=== PATIENT | female | born 1995 | race Caucasian/White ===

== ENCOUNTER → 2020-12-03 11:30 | Outpatient (CLI) | payer OTHER, SELFPAY ==
--- NOTE | ~2020-12-03 | XR_ITS ---
XR cervical spine 4-5V INDICATION: Cervicalgia TECHNIQUE: 3 views of the cervical spine. FINDINGS: No prior studies for comparison. The cervical spine is visualized to the cervicothoracic junction. There is no prevertebral soft tiss ue swelling, listhesis, or loss of vertebral body height. Intervertebral disc spaces are normal. Th e osseous central canal is patent. No displaced cervical spine fractures are identified. IMPRESSION: 1. No acute osseous abnormality of the cervical spine. Reviewed, dictated and finalized at location B.
== END ==
PROVIDERS: Visit Provider Physician Assistant
DX: M54.2 Cervicalgia (principal)
CPT/HCPCS: 72050

== ENCOUNTER 2021-06-27 14:49 | Emergency (ER) | payer OTHER, SELFPAY ==
[2021-06-27 14:57] VITALS: BP 128/69; PULSE 92; RESP 20; TEMP 37.4; O2SAT 100
--- NOTE | 2021-06-27 15:39 | ED.EAR ---
HPI - Ear Problem General Chief complaint: Ear Stated complaint: Ear Pain Time Seen by Provider: 06/27/21 15:29 Source: patient and RN notes reviewed Mode of arrival: ambulatory Limitations: no limitations History of Present Illness HPI Narrative: 25-year-old female presents concern for bilateral ear pain and fullness, worse on the right. Reports pain started approximately 6 days ago and has progressed on the right ear. She denies nasal drainage, sinus congestion, headache, sore throat, fever, body aches, chills, sweats, cough. Denies drainage from the ear. MD Complaint: ear pain Related Data Home Medications Medication Instructions Recorded Confirmed norgestimate 0.25 mg-ethinyl 1 tablet PO DAILY 05/10/19 06/27/21 estradiol 35 mcg tablet Allergies Allergy/AdvReac Type Severity Reaction Status Date / Time No Known Allergies Allergy Verified 06/27/21 15:06 Review of Systems Review of Systems: CONSTITUTIONAL: Denies malaise, chills, sweats, or fever. EYES: Denies visual changes, redness, or discharge. ENT: Denies rhinorrhea, congestion, sinus pain, and sore throat. Reports bilateral ear pain and fullness, worse on the right CARDIOVASCULAR: Denies chest pain, palpitations, or edema. RESPIRATORY: Denies cough. Denies dyspnea. GASTROINTESTINAL: Denies abdominal pain, nausea, vomiting, diarrhea SKIN: Denies rash or itching. MUSCULOSKELETAL: Denies myalgia. NEUROLOGIC: Denies headache. All systems reviewed & are unremarkable except as noted in HPI and below PMFSH Past Medical History Medical History Fatigue Loss of hair Surgical History Surgical History History of removal of cyst History of tonsillectomy [place] teeth removed Family History Family History Grandparent Diabetes mellitus Cerebrovascular accident Family history of pancreatic cancer Social History Social History Smoking status: Never smoker Second hand tobacco smoke exposure: No Alcohol intake: current Drinks per week: 3 Substance use: never Substance use type: does not use Gender identity (if verbalized by the patient): Female Sexual Orientation (if Verbalized by the Patient): Straight or Heterosexual Comments At time of signature, agree with nursing past medical, surgical, social and family history. There is no relevant family history pertinent to the presenting complaint Exam Narrative: GENERAL: Well-appearing, well-nourished, and in no acute distress. HEAD: Normocephalic EYES: PERRLA, conjunctivae clear ENT: Nares clear, turbinates edematous, clear discharge. Mucous membranes moist. TM pearly wray with dull light reflex bilaterally; no tragal tenderness. Oropharynx not erythematous without lesions. Tonsils not enlarged and without exudate, no drooling, no hoarseness, no trismus, uvula midline. NECK: Supple. No lymphadenopathy CHEST: Clear to auscultation, breath sounds equal. No wheezing, rhonchi, rales, or stridor. No respiratory distress, speaks in full sentences. HEART: Regular rate and rhythm. No murmur heard. SKIN: Warm, dry, no rash. NEURO: Alert and oriented x3. PSYCH: Normal mood and affect Course Course Emergency Course: Patient is aware of diagnosis, understands and agrees to treatment plan. Anticipatory guidance given. Patient agrees to follow-up as directed and is aware of reasons to seek care at the emergency department. Portions of this record may have been created with voice recognition software Vital Signs Vital signs: Vital Signs Temperature 99.4 F 06/27/21 14:57 Pulse Rate 92 06/27/21 14:57 Respiratory Rate 20 06/27/21 14:57 Blood Pressure 128/69 06/27/21 14:57 Pulse Oximetry 100 06/27/21 14:57 Temperature 99.4 F 06/27/21 14:57 Pulse Rat
== END 2021-06-27 15:46 | disposition home or self-care (01) ==
PROVIDERS: Emergency Provider Nurse Practitioner; PCP Family Medicine
DX: H69.83 Other specified disorders of Eustachian tube, bilateral (principal)
CPT/HCPCS: 99213; G0463

== ENCOUNTER 2023-03-29 10:53 | Emergency (ER) | payer OTHER, SELFPAY ==
[2023-03-29 11:02] VITALS: BP 116/74; PULSE 83; RESP 20; TEMP 36.8; O2SAT 100
--- NOTE | 2023-03-29 11:12 | ED.URI ---
HPI - URI/Sore Throat General Chief Complaint: Upper Respiratory Infection Stated Complaint: sore throat History of Present Illness HPI Narrative: Patient presents with sore throat. No fever no trouble swallowing no drooling. Patient also reports an occasional cough but no other symptoms voiced. Related Data Home Medications Medication Instructions Recorded Confirmed norgestimate 0.25 mg-ethinyl 1 tablet PO DAILY 05/10/19 03/29/23 estradiol 35 mcg tablet (Estarylla) Allergies Allergy/AdvReac Type Severity Reaction Status Date / Time No Known Allergies Allergy Verified 03/29/23 11:11 Review of Systems Review of Systems: CONSTITUTIONAL: Denies chills, or sweats. Reports fever and generalized body aches EYES: Denies visual changes, redness, or discharge. ENT: Denies otalgia. Reports nasal congestion runny nose and sore throat CARDIOVASCULAR: Denies chest pain, palpitations, or edema. RESPIRATORY: Denies dyspnea. Reports occasional cough GASTROINTESTINAL: Denies abdominal pain, nausea, vomiting, or diarrhea. GENITOURINARY: Denies dysuria or hematuria. SKIN: Denies rash or itching. MUSCULOSKELETAL: Denies back pain, joint pain, or myalgia. Reports generalized body aches NEUROLOGIC: Denies headache, numbness, or weakness. PSYCHIATRIC: Denies anxiety or depression. [facility] Past Medical History Medical History Fatigue Loss of hair Surgical History Surgical History History of removal of cyst History of tonsillectomy [place] teeth removed Family History Family History Grandparent Diabetes mellitus Cerebrovascular accident Family history of pancreatic cancer Grandparent Thyroid cancer Other H/O parathyroidectomy Social History Social History Smoking status: Never smoker Second hand tobacco smoke exposure: No Alcohol intake: current Drinks per week: 3 Substance use: never Substance use type: does not use Lack of Transportation: No Lack of Food: Never True Current Housing: I Have Housing Concerned About Future Housing: No Difficulty Paying Gas/Electric Bills: No Difficulty Paying for Meds: No Currently Unemployed: No Education: Bachelor's Degree Difficulty w/ Childcare or Family Care: No Living arrangements: with family Occupation/Education: student Gender identity (if verbalized by the patient): Female Sexual Orientation (if Verbalized by the Patient): Straight or Heterosexual Comments At time of signature, agree with nursing past medical, surgical, social and family history. There is no relevant family history pertinent to the presenting complaint Exam Narrative: The patient is a well-developed, well-nourished in no acute distress. SKIN: Skin is warm and dry without erythema, swelling or exudate. There is good turgor. No tenting. HEAD: Atraumatic. Normocephalic. No temporal or scalp tenderness. EYES: Moist and bright. Sclera and conjunctivae normal. No discharge. PERRLA. Extraocular motions intact. Gross visual acuity intact. EARS: Pinna is normal shape and contour. Clear external auditory canals. TM pearly aparicio with good cone of light, no erythema or suppuration. Bilateral cerumen noted no gross hearing deficit. NOSE: pink, moist mucosa with good air movement. Clear rhinorrhea without nasal flaring. Septum midline. Mouth: moist mucous membranes. THROAT; mild erythema noted to posterior oropharynx with moderate postnasal drainage. Without exudate or ulceration.. Uvula midline. Normal movement of soft palate. NECK: Supple and nontender with full range of motion without discomfort. No meningeal signs. LUNGS: Equal and bilateral breath sounds without wheezes, rales or rhonchi. CHEST: The chest wall is without retractions or use of
== END 2023-03-29 11:23 | disposition home or self-care (01) ==
PROVIDERS: Emergency Provider Nurse Practitioner Family; PCP Family Medicine
DX: J02.9 Acute pharyngitis, unspecified (principal)
CPT/HCPCS: 87081; 87880; 99213; G0463

== ENCOUNTER 2023-04-05 09:46 | Emergency (ER) | payer OTHER, SELFPAY ==
[2023-04-05 10:04] VITALS: BP 125/86; PULSE 94; RESP 16; TEMP 37.2; O2SAT 100
--- NOTE | 2023-04-05 10:27 | ED.URI ---
HPI - URI/Sore Throat General Chief Complaint: Upper Respiratory Infection Stated Complaint: Sore Throat/Ear Problem Time Seen by Provider: 04/05/23 10:22 Source: patient, RN notes reviewed and old records reviewed Mode of arrival: ambulatory Limitations: no limitations History of Present Illness HPI Narrative: 27 year old female who presents to [facility] care with complaints of sore throat sinus drainage and dry cough for one week duration and received Steroid from previous visit which she completed. Patient reports that symptoms are better but now bilateral ear pain with tenderness in her neck below her ears. Patient has been taking Tylenol, Sudafed and some Delsym cough medication for her symptoms. MD elicited complaint: cough, sore throat and other (ear pain) Onset (ago): week(s) (1) Pain scale (0-10): 4 Treatments prior to arrival: acetaminophen and other (Delsym, Sudafed) Related Data Home Medications Medication Instructions Recorded Confirmed norgestimate 0.25 mg-ethinyl 1 tablet PO DAILY 05/10/19 04/05/23 estradiol 35 mcg tablet (Estarylla) Allergies Allergy/AdvReac Type Severity Reaction Status Date / Time No Known Allergies Allergy Verified 04/05/23 10:03 Review of Systems Review of Systems: CONSTITUTIONAL: Denies malaise, chills, sweats, or fever. EYES: Denies visual changes, redness, or discharge. ENT: Reports rhinorrhea, congestion, sinus pain, bilateral otalgia and some scratchy throat. CARDIOVASCULAR: Denies chest pain, palpitations, or edema. RESPIRATORY: Reports cough.? Denies dyspnea. GASTROINTESTINAL: Denies abdominal pain, nausea, vomiting, diarrhea SKIN: Denies rash or itching. MUSCULOSKELETAL: Denies myalgia. NEUROLOGIC: Denies headache. All systems reviewed & are unremarkable except as noted in HPI and below PMFSH Past Medical History Medical History Fatigue Loss of hair Surgical History Surgical History History of removal of cyst History of tonsillectomy [place] teeth removed Family History Family History Grandparent Diabetes mellitus Cerebrovascular accident Family history of pancreatic cancer Grandparent Thyroid cancer Other H/O parathyroidectomy Social History Social History Smoking status: Never smoker Second hand tobacco smoke exposure: No Alcohol intake: current Drinks per week: 3 Substance use: never Substance use type: does not use Lack of Transportation: No Lack of Food: Never True Current Housing: I Have Housing Concerned About Future Housing: No Difficulty Paying Gas/Electric Bills: No Difficulty Paying for Meds: No Currently Unemployed: No Education: Bachelor's Degree Difficulty w/ Childcare or Family Care: No Living arrangements: with family Occupation/Education: student Gender identity (if verbalized by the patient): Female Sexual Orientation (if Verbalized by the Patient): Straight or Heterosexual Comments At time of signature, agree with nursing past medical, surgical, social and family history. There is no relevant family history pertinent to the presenting complaint Exam Narrative: GENERAL: Well-appearing, well-nourished, and in no acute distress. HEAD: Normocephalic EYES: PERRLA, conjunctivae clear ENT: Nares clear, turbinates edematous and erythematous, clear discharge. Mucous membranes moist.Right TM red, Left TM pearly wray with dull light reflex bilaterally; no tragal tenderness. Oropharynx erythematous without lesions. Tonsils not present and throat without exudate, no drooling, no hoarseness, no trismus, uvula midline.post nasal drainage NECK: Supple. No lymphadenopathy CHEST: Clear to auscultation, breath sounds equal. No wheezing, rhonchi, rales, or stri
== END 2023-04-05 10:33 | disposition home or self-care (01) ==
PROVIDERS: Emergency Provider Registered Nurse; PCP Family Medicine
DX: H65.01 Acute serous otitis media, right ear (principal)
CPT/HCPCS: 99213; G0463

== ENCOUNTER 2023-12-21 11:33 | Emergency (ER) | payer OTHER, SELFPAY ==
[2023-12-21 11:40] VITALS: BP 133/76; PULSE 85; RESP 14; TEMP 37.1; O2SAT 99
--- NOTE | 2023-12-21 12:15 | ED.HEATRA ---
HPI - Head Injury General Chief complaint: Head Injury Stated complaint: 2 x 4 fell on head/headaches Time Seen by Provider: 12/21/23 12:00 Source: patient Mode of arrival: ambulatory Limitations: no limitations History of Present Illness HPI Narrative: 28 year old female who presents to [facility] care with complaints of being hit on the right parietal area of her head 5 days ago when a 2X4 fell 3 feet off of her deck. Patient reports that she initially had some nausea but that resolved. Patient reports that she did not have loss of consciousness or have any vomiting.She reports initial goose egg almost gone no break in skin noted. Patient reports that she continues to have some headache that are in the right side of her head and radiates to back of her head. Patient reports that she has been taking Tylenol and Ibuprofen for her headache with last dose taken at 3 pm yesterday. Patient reports no dizziness denies any nausea or any photophobia. Patient works at a [employer] in [place] and her DON wanted her to be seen. MD Complaint: head injury Onset (ago): day(s) (5) Mechanism of Injury: other (2X4 fell 3 feet off deck hit her in head) Place: home Loss of Consciousness: no Location of injury: parietal (right) Severity scale (1-10): 6 Quality: other (throbbing) Associated symptoms: other (headache) Related Data Home Medications Medication Instructions Recorded Confirmed norgestimate 0.25 mg-ethinyl 1 tablet PO DAILY 05/10/19 12/21/23 estradiol 35 mcg tablet (Estarylla) Allergies Allergy/AdvReac Type Severity Reaction Status Date / Time No Known Allergies Allergy Verified 12/21/23 11:56 Review of Systems Review of Systems: CONSTITUTIONAL: Denies fever, chills, or sweats. EYES: Denies visual changes, redness, or discharge. ENT: Denies rhinorrhea, congestion, sore throat, or otalgia. CARDIOVASCULAR: Denies chest pain, palpitations, or edema. RESPIRATORY: Denies cough or dyspnea. GASTROINTESTINAL: Denies abdominal pain, nausea, vomiting, or diarrhea. GENITOURINARY: Denies dysuria or hematuria. SKIN: Denies rash or itching. MUSCULOSKELETAL: Denies back pain, joint pain, or myalgia. NEUROLOGIC: reports headache, denies any numbness, or weakness. PSYCHIATRIC: Denies anxiety or depression. All systems reviewed & are unremarkable except as noted in HPI and below PMFSH Past Medical History Medical History Fatigue Loss of hair Surgical History Surgical History History of removal of cyst History of tonsillectomy [place] teeth removed Family History Family History Grandparent Diabetes mellitus Cerebrovascular accident Family history of pancreatic cancer Grandparent Thyroid cancer Other H/O parathyroidectomy Social History Social History Smoking status: Never smoker Second hand tobacco smoke exposure: No Alcohol intake: current Drinks per week: 3 Substance use: never Substance use type: does not use Lack of Transportation: No Lack of Food: Never True Current Housing: I Have Housing Concerned About Future Housing: No Difficulty Paying Gas/Electric Bills: No Difficulty Paying for Meds: No Currently Unemployed: No Education: Bachelor's Degree Difficulty w/ Childcare or Family Care: No Living arrangements: with family Occupation/Education: student Gender identity (if verbalized by the patient): Female Sexual Orientation (if Verbalized by the Patient): Straight or Heterosexual Comments At time of signature, agree with nursing past medical, surgical, social and family history. There is no relevant family history pertinent to the presenting complaint Exam Narrative: GENERAL: Well-appearing, well-nourished, and in no acute distress. HEAD: Normoc
== END 2023-12-21 12:40 | disposition home or self-care (01) ==
PROVIDERS: Emergency Provider Registered Nurse; PCP Family Medicine
DX: R51.9 Headache, unspecified (principal); F07.81 Postconcussional syndrome
CPT/HCPCS: 99211; G0463

== ENCOUNTER 2024-09-15 12:06 | Emergency (ER) | payer OTHER, SELFPAY ==
[2024-09-15 12:10] VITALS: BP 126/77; PULSE 85; RESP 16; TEMP 36.8; O2SAT 99
[2024-09-15 12:28] LABS: EDSTREPNEGPOS1 Negative (Negative)
--- NOTE | 2024-09-15 12:35 | ED.URI ---
HPI - URI/Sore Throat General Chief Complaint: Upper Respiratory Infection Stated Complaint: Sore Throat Time Seen by Provider: 09/15/24 12:35 Source: patient Mode of arrival: ambulatory Limitations: no limitations History of Present Illness HPI Narrative: 28-year-old female presents with complaint of sore throat since yesterday morning. Woke up congested with postnasal drainage today. Started Zyrtec. Afebrile. No cough. No fatigue, body aches or chills. Afebrile. All systems reviewed and negative except as noted above. Related Data Home Medications ?Medication ?Instructions ?Recorded ?Confirmed ?Last Taken ?Type No Home Medications 08/15/24 08/15/24 Unknown History Allergies Allergy/AdvReac Type Severity Reaction Status Date / Time No Known Allergies Allergy Verified 08/15/24 13:38 Review of Systems Review of Systems: CONSTITUTIONAL: Denies fever, chills, or sweats. EYES: Denies visual changes, redness, or discharge. ENT: Reports rhinorrhea, congestion, sore throat. Denies otalgia. CARDIOVASCULAR: Denies chest pain, palpitations, or edema. RESPIRATORY: Denies cough or dyspnea. GASTROINTESTINAL: Denies abdominal pain, nausea, vomiting, or diarrhea. GENITOURINARY: Denies dysuria or hematuria. SKIN: Denies rash or itching. MUSCULOSKELETAL: Denies back pain, joint pain, or myalgia. NEUROLOGIC: Denies headache, numbness, or weakness. PSYCHIATRIC: Denies anxiety or depression. All other systems reviewed are negative, except as documented in HPI. [facility] Past Medical History Medical History Loss of hair Fatigue Surgical History Surgical History History of removal of cyst [place] teeth removed History of tonsillectomy Family History Family History Grandparent Diabetes mellitus Cerebrovascular accident Family history of pancreatic cancer Grandparent Thyroid cancer Other H/O parathyroidectomy Social History Social History Smoking status: Never smoker Second hand tobacco smoke exposure: No Alcohol intake: current Drinks per week: 3 Substance use: never Substance use type: does not use Lack of Transportation: No Lack of Food: Never True Current Housing: I Have Housing Concerned About Future Housing: No Difficulty Paying Gas/Electric Bills: No Difficulty Paying for Meds: No Currently Unemployed: No Education: Bachelor's Degree Difficulty w/ Childcare or Family Care: No Living arrangements: with family Occupation/Education: student Gender identity (if verbalized by the patient): Female Sexual Orientation (if Verbalized by the Patient): Straight or Heterosexual Comments At time of signature, agree with nursing past medical, surgical, social and family history. There is no relevant family history pertinent to the presenting complaint. Exam Narrative: GENERAL: This is a well-nourished, well-developed patient, in no apparent distress. HEAD: normocephalic, atraumatic. EYES: PERRL. Sclera clear/white. Vision is grossly intact. EARS: External ears normal, auditory canals clear and without drainage, TMs normal without perforation. Hearing grossly intact. NOSE: External nose normal with no obvious nasal discharge, nares without redness, no rhinorrhea. THROAT: Mucous membranes moist, mild erythema postnasal drainage. No swelling or exudates NECK: Neck supple, non-tender without lymphadenopathy, masses or thyromegaly. CARDIOVASCULAR: Regular rate and rhythm without murmurs, gallops, or rubs. RESPIRATORY: Clear to auscultation. Breath sounds equal bilaterally. No wheezes, rales, or rhonchi. SKIN: warm, Dry, intact with no suspicious lesions or rash, good texture and turgor. NEURO: awake, alert, and oriented to person, place and time. There were no obvious focal neurologic abnormalities. EXTREMITIES: No joint tenderness, effusion, or edema noted. Course Course Level of Care: Express Care Visit Vital Signs Vital signs: Vital Signs Temperature 36.8 C 09/15/24 12:10 Pulse Rate 85 09/15/24 12:10 Respiratory Rate 16 09/15/24 12:10 Blood Pressure 126/77 09/15/24 12:10 Pulse Oximetry 99 09/15/24 12:10 Oxygen Delivery Room Air 09/15/24 12:10 Temperature 36.8 C 09/15/24 12:10 Pulse Rate 85 09/15/24 12:10 Respiratory Rate 16 09/15/24 12:10 Blood Pressure 126/77 09/15/24 12:10 Pulse Oximetry 99 09/15/24 12:10 Oxygen Delivery Room Air 09/15/24 12:10 reviewed MDM - URI/Sore Throat MDM Narrative Medical decision making narrative: negative strep. Strep culture ordered. Recommend patient continue Zyrtec and purchase pseudoephedrine. Patient is well-appearing, nontoxic. Please be advised this is a medical document. It is intended for [id number] communication. It is written in medical language and may contain unfamiliar abbreviations or verbiage. Medical documents are intended to carry relevant information, facts as evident, and the clinical opinion of the practitioner at the time of the encounter. This report may have been done utilizing a voice recognition system. Attempts have been made to correct errors. However, there may be uncorrected grammatical, spelling, and recognition errors present. The file time of this note does not necessarily represent the time of service. Differential Diagnosis Differential diagnosis: Likely upper respiratory infection, sinusitis, viral infection and pharyngitis Lab Data Labs: Lab Results 09/15/24 Range/Units 12:26 POC Grp A Strep Screen Negative (Negative) Discharge Plan Discharge Clinical Impression: Acute viral sinusitis Patient Disposition: Home, Self-Care Condition: Stable Instructions: Sinusitis (ED) Additional Instructions: your strep test was negative today. A strep culture was ordered and results will take 24-48 hours. If your strep culture is positive we will call you at that time and prescribed an antibiotic. Continue taking Zyrtec daily. Purchase [id number] pseudoephedrine and take as directed on packaging. Drink at least 64 oz of water a day. See your doctor if symptoms are not improving. Patient Language: Slovak Prescriptions: No Action No Home Medications Follow-up/Referrals: Cecelia Hoff, RAKING MACHINE OPERATOR-C [Primary Care Provider] - Time of Disposition: 12:41
--- OUTSIDE RECORDS SUMMARY | 2024-09-15 12:57 | XMS_ITS | Clinical Summary ---
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 Gender Identity Not on file Sexual Orientation Not on file Plan of Treatment Health Maintenance Due Date Last Done Comments Cervical Cancer Screening 1993 Depression Screening 1993 Hepatitis C Screening 1993 Regular Well Visit/Exam 18-64 09/22/2011 HPV Vaccines (2 - 3-dose series) 04/14/2012 03/17/2012 Covid-19 Vaccine ( season) 2024 03/01/2021, 02/01/2021 Influenza Vaccine (#1) 2024 , 02/29/2020, 07/04/2019, Additional history exists DTaP/Tdap/Td Vaccine (9 - Td or Tdap) 02/28/2030 02/29/2020, 06/28/2007, 01/27/2006, Additional history exists Hepatitis B Screening Completed 10/23/1994 , 1993, 1993 Varicella Vaccines Completed 01/24/2008, 05/17/1995 Pneumococcal vaccine <65 Aged Out No longer eligible based on patient's age to complete this [place] [id number] [facility] CHOICE PLUS [facility] H[facility]/PPO Address: [facility] [id number] [place] [address] Care Teams 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
--- OUTSIDE RECORDS SUMMARY | 2024-09-15 12:57 | XMS_ITS | Clinical Summary ---
Author Organization [facility] Address [address] [place] [address] Care Team Providers Care Supervisor Steno Pool Name Role Phone Andrade De Oliveira MD Primary Care Provider [phone] Source Comments [facility],non-owned Affiliates and Associated Physician Practices is amultiple site organization consisting of ambulatory clinics and hospital sitesin [place], [place], [place] and [place]. This disclosure is being madepursuant to the Care Everywhere program and may not contain all information available regarding this patient. Last updated 18.[facility] Allergies No known active allergies Medications Be aware that medications may not be up to date on this document. Always verify current medications with the patient. No known medications Active Problems No known active problems Immunizations Name Administration Dates Next Due INFLUENZA VACCINE, QUADR. (F LUZONE; FLULAVAL; FLUARIX; AFLURIA QUADRIVALENT; 6MO+), 0.5 ML (IIV4) 02/29/2020 TDAP (7yrs+) 02/29/2020 Social History Tobacco Use Types Packs/Day Years Used Date Smoking Tobacco: Never Assessed Sex and Gender Information Value Date Recorded Sex Assigned at Not on file Gender Identity Not on file Sexual Orientation Not on file Last Filed Vital Signs Vital Sign Reading Time Taken Comments Blood Pressure 128/70 12/15/2019 3:31 PM CDT Pulse 70 12/15/2019 3:31 PM CDT Temperature 37.2 C (98.9 F) 12/15/2019 3:31 PM CDT Respiratory Rate 20 12/15/2019 3:31 PM CDT Oxygen Saturation - - Inhaled Oxygen Concentration - - Weight 63 kg (139 lb) 12/15/2019 3:31 PM CDT Height 168 cm (5' 6.14 ) 12/15/2019 3:31 PM CDT Body Mass Index 22.34 12/15/2019 3:31 PM CDT Plan of Treatment Health Maintenance Due Date Last Done Comments PAP SMEAR 1993 HIV SCREENING 2008 HEPATITIS C SCREENING 09/17/2011 HEPATITIS B VACCINE (1 of 3 - 19+ 3-dose series) 2012 COVID-19 VACCINE (1 - 2023-2 5 season) 2024 INFLUENZA VACCINE (#1) 2024 0, 07/04/2019, 04/19/2014 DEPRESSION SCREENING 06/28/2024 DTAP/TDAP/TD VACCINES (2 - T d or Tdap) 02/28/2030 02/29/2020 ZOSTER VACCINE (1 of 2) 09/22/2043 HIB VACCINE Aged Out No longer eligi ble based on patient's age to complete this topic HPV VACCINE Aged Out No longer eligi ble based on patient's age to complete this topic MENINGOCOCCAL (Group B) VACCINE SHARED DECISION-MAKING Aged Out No longer eligible based on patient's age to complete this topic MENINGOCOCCAL GROUPS A/C/Y/W VACCINE Aged Out No longer eligible b ased on patient's age to complete this topic PNEUMOCOCCAL VACCINE Aged Out No long er eligible based on patient's age to complete this topic Care Teams Supervisor Steno Pool Relationship Specialty Start Date End Date Andrade De Oliveira MD [address] [place] [phone] PCP - General Family Medicine 05/06/16
--- OUTSIDE RECORDS SUMMARY | 2024-09-15 12:57 | XMS_ITS | Referral Summary ---
Author Organization 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
--- OUTSIDE RECORDS SUMMARY | 2024-09-15 12:57 | XMS_ITS | Data Portability ---
Author Organization [facility] [place] Address [address] [place] [address] Care Team Providers Care Last Greaser Name Role Phone TALISHAROXY Primary Care Provider Assessment Encounter Date Assessment Date Assessment LastModified by Organization Details LastModified Time 02/20/2020 02/20/2020 Annual gynecological exam performed. Patient will come back in a year unless there are new symptoms. [email or web address] Not available 02/20/2020 11:51:58 10/02/2021 10/02/2021 Annual gynecological exam performed. Patient will come back in a year unless there are new symptoms. [email or web address] Not available 09/30/2021 14:45:31 04/30/2023 04/30/2023 Annual gynecological exam performed. Patient will come back in a year unless there are new symptoms. Not available 04/30/2023 14:09:38 Plan of Treatment Reminders Order Date Submit Date Provider Last Modified By Organization Details Last Modified Time Details Appointments None recorded. Lab None recorded. Referral None recorded. Procedures None recorded. Surgeries None recorded. Imaging None recorded. Medication Orders Estarylla 0.25 mg-0.035 mg tablet 2022 023 [facility][id number], [address] [place] [place], [place], [id number], 14:20:09 Estarylla 0.25 mg-0.035 mg tablet 2021 022 [facility], [address], [place], [id number], 2 11:10:28 amitriptyl ine 25 mg tablet 2020 021 [facility] #57008, [address], [place], [id number], 1 13:33:45 Estarylla 0.25 mg-0.035 mg tablet 2020 021 [facility] #95083, [address], [place], [id number], 1 13:33:45 Junel 07/17 (21) 1 mg-20 mcg tablet [email or web address] [facility] #58929, [address] [place] [address], [id number], 2 17:55:45 Sprintec (28) 0.25 mg-0.035 mg tablet 2019 [email or web address] [facility] #34086, [address] [place] [address], [id number], 14:13:21 Patient TargetsNo targets recorded. Patient Instructions Encounter Date Encounter Id Patient Instructions Last Modified By Organization Details Last Modified Time 02/20/2020 [id number] [email or web address] Not available 12:23:15 Reason for Referral None Reported. Results Created Date Observation Date Name Description Value Unit Range Abnormal Flag Note LastModifiedBy Organization Detail LastModifiedTime 02/20/20 20 02/22/2020 pap, LB Pap test thin prep Negati ve for Intrae pithel ial Lesion or Malign candy normal ACCES STEFFEN #: [id number] Sourc e: Cervi jorge/E ndoce rvica l LMP: 01/28 Date Taken : 02/19 Speci men Type: ThinP rep Vial Date Repor concetta: 2019 Clini jorge Data: Cytot ech: Lulu Eldridge , CT( CP) Date Repor concetta: 2019 Speci men Adequ acy: Satis facto ry for evalu ation Endoc ervic al/tr ansfo rmati on zone compo nent prese nt Gener al Categ oriza tion: NEGAT DIEGO FOR INTRA EPITH ELIAL LESIO N OR MALIG BETTY This speci men has been case zed by the ThinP rep Imagi ng Syste m, an inter activ e compu ter syste m which rashid ts the lab in the scree tia of ThinP rep Pap Test slide s. Follo wing imagi ng, the slide was revie wed by a Cytot echno logis t and/o r Patho logis t. End of t Techn ical servi kari provi ded by [facility] [employer], d/b/a [facility] [place], [address] [place] [address] Ian Sanderson MD, Labor atory Dire tor. Case revie wed and diagn osis rende red at [facility] [employer], [facility], d/b/a [facility] [place], [address] [place] [address] Ian Sanderson MD, Labor atorVidder Dire tor. CONFI DENTI AL Not Available [facility]) [address], [place], [address], 02/22/2020 13:18:23 10/03/19 22 10/02/2021 IMAGE GUIDE D PAP, REFLE X HPV IF ASCUS ONLY image guided Pap, reflex HPV ASCUS only SEE RESULT S BELOW CASE REPOR T: Cytol ogy Gynec ologi jorge Repor t Case: [id number] Autho tremayne smith Provi cary: Keely Manzano MD Colle cted: 10/02 1117 Order ing Locat ion: [place] [facility] Recei estefany: 10/03 0829 First Scree n: Rosie Navarrete ret, CT Rescr een: James Huizar Speci men: Scree tia Pap - Image d, Cervi x STATE MENT OF ADEQU ACY: UNSAT ISFAC TORY SPECI MEN FINAL DIAGN OSIS: Unsat isfac tory for evalu ation . Inade quate squam ous epith elial compo nent for diagn osis. Elect cleveland lopez agus d by James Huizar on 2021 at 3:55 PM ----- ----- ----- ----- ----- ----- ----- ----- ----- ----- ----- ----- ----- ----- ----- ----- ----- ---- COMME NT: Note: This speci men was revie wed by a Cytot echno logis t and/o r Patho logis t (as indic ated in this repor t) after evalu ation using the Thinp rep Imagi ng Syste m. CLINI JORGE INFOR MATIO N: Menst rual Statu s: LMP (if appli cable ): Clini jorge Histo ry/Pr eviou s Pap: Type of Neopl hardy (if appli cable ): Signi fican t Clini jorge Findi ngs: Other Histo ry: Hormo deon (if appli cable ): Not Available [facility] (Lab) [address], [place], [address], 10/10/2021 16:57:48 04/30/20 23 04/30/2023 IMAGE GUIDE D PAP, REFLE X HPV IF ASCUS ONLY image guided Pap, reflex HPV ASCUS only SEE RESULT S BELOW CASE REPOR T: Cytol ogy Gynec ologi jorge Repor t Case: [id number] Autho tremayne smith Provi cary: Arun Nguyen Colle cted: 04/30 1514 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 Elect cleveland lopez agus d by Raymond Marley am, CT on 2022 at 1:00 PM ----- ----- ----- ----- ----- ----- ----- ----- ----- ----- ----- ----- ----- ----- ----- ----- ----- ---- COMME NT: This speci men was revie wed by a Cytot echno logis t and/o r Patho logis t (as indic ated in this repor t) after evalu ation using the Thinp rep Imagi ng Syste m. CLINI JORGE INFOR MATIO N: Menst rual Statu s: LMP (if appli cable ): Clini jorge Histo ry/Pr eviou s Pap: Type of Neopl hardy (if appli cable ): Signi fican t Clini jorge Findi ngs: Other Histo ry: Hormo deon (if appli cable ): PAP EDUCA SAWYER L NOTE: The Pap Test is a scree tia test with an inher ent false negat diego rate. Liqui d-bas ed sampl ing may decre ase, but will not elimi angélica, false negat diego resul ts. A negat diego resul t does not precl ude the prese nce and/o r devel opmen t of disea se, since the prese nce of abnor mal cells in the sampl e depen ds on the locat ion of the lesio n and sampl ing techn ique. Josh nued regul ar scree tia is the best metho d of cance r preve ntion . If repor concetta cytol ogic findi ng do not corre late with physi jorge and/o r histo rical findi ngs, furth er inves tigat ion is recom luiz d, as clini maria elena wells nted. Not Available [facility] (Lab) [address], [place], [address], 05/04/2023 14:02:26 Result Notes None recorded. Problems Name Problem SNOMED Code Status Onset Date Resolution Date Notes Provider Name and Address Organization Details Recorded Time Screenin g for malignan t neoplasm of cervix Completed 201003/30/2012 Screening for malignant neoplasms of the cervix;Re corded Elsewhere : No Locati on: [facility] So urce: EHR Chron ic: N Practic e ID: 0001 Bill able Time: 03:30:[address] [facility] 17:39:[address] Concept Completed 201812/16/2020 Encntr for general adult medical exam w/o abnormal findings; Recorded Elsewhere : No Locati on: [facility] So urce: EHR Chron ic: N Practic e ID: 0001 Bill able Time: 08:45:[address] [facility] 17:39:34 Menstrua tion finding Completed 201412/16/2020 Excessive or frequent menstruat ion;Recor ded Elsewhere : No Locati on: [facility] So urce: EHR Chron ic: N Practic e ID: 0001 Bill able Time: 09:30:[address] [facility] 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 17:39:37 Irregula r intermen strual bleeding [id number] Completed 201412/16/2020 Break through bleeding; Recorded Elsewhere : No Locati on: [facility] So urce: EHR Chron ic: N Practic e ID: 0001 Bill able Time: 10:30:[address] [facility] 1 17:39:28 Surveill ance of contrace ption Completed 201612/16/2020 Encounter for surveilla nce of contracep tives, unspecifi ed;Record ed Elsewhere : No Locati on: [facility] So urce: EHR Chron ic: N Practic e ID: 0001 Bill able Time: 02:00:[address] [facility] 1 17:39:[address] Concept Completed 201512/16/2020 Encntr for psychiatric cns exam (general) (routine) w/o abn findings; Recorded Elsewhere : No Locati on: [facility] So urce: EHR Chron ic: N Practic e ID: 0001 Bill able Time: 01:15:[address] [facility] 1 17:39:36 Family planning surveill ance Completed 201103/30/2012 Contracep tive surveilla nce, unspecifi ed;Record ed Elsewhere : No Locati on: [facility] So urce: EHR Chron ic: N Practic e ID: 0001 Bill able Time: 01:30:00 PM Not Available [facility] 0 14:28:03 Speciali zed medical examinat ion Completed 201003/30/2012 Gynecolog ical Examinati on;Record ed Elsewhere : No Locati on: [facility] So urce: EHR Chron ic: N Practic e ID: 0001 Bill able Time: 03:30:00 PM Gissel Us [facility] 1 17:39:37 Screenin g for malignan t neoplasm of cervix Completed 201112/16/2020 Pap Smear;Pra ctice ID: [address] [facility] 17:39:33 Migraine [id number] Completed 201612/16/2020 Migraine, unsp, not intractab le, without status migrainos us;Practi ce ID: [address] [facility] 17:39:31 Headache [id number] Completed 201112/16/2020 Headache; Recorded Elsewhere : No Locati on: [facility] So urce: EHR Chron ic: N Practic e ID: 0001 Bill able Time: 01:30:[address] [facility] 17:39:26 Problem Notes None recorded. Procedures Surgical History Date Name Laterality Status Provider Name and Address Organization Details Recorded Time Tonsillectomy completed Ninfa Good Ariel [facility] 04/30/2023 14:15:34 Imaging Results None recorded. Procedure Notes None recorded. Medical Equipment None Reported. Allergies No known drug allergies Medications Name Sig Start Date Stop Date Status Note LastModified by Organization Details LastModified Time cyclobenz aprine 10 mg tablet active Not Available Not Available No t Available prednison e 10 mg tablet 12/24 completed Not Available Not Available Not Available sumatript an 50 mg tablet take 1 tablet by mouth . May repeat dose after 2 hours IF needed. Max dosage 100mg in 24 hour preferre d. 04/30 completed Not Available Not Available Not Available amitripty line 25 mg tablet take 1 tablet by oral route daily as needed for migraine s. active Not Available Not Available No t Available phenazopy ridine 100 mg tablet active Not Available Not Available Not Available norethind gerald acetate 1 mg-ethiny l estradiol 20 mcg tablet Take 1 tablet daily skipping placebo week for continuo us therapy. 07/02 completed Not Available Not Available Not Available fluticaso ne propionat e 50 mcg/actua tion nasal spray,colleen pension 04/30 completed Not Available Not Available Not Available nitrofura ntoin monohydra te/macroc rystals 100 mg capsule 04/30 completed Not Available Not Available Not Available amitripty line 02/19 completed Not Available Not Available Not Available PAIGE (28) 3 mg-0.02 mg tablet take 1 tablet by oral route every day 03/30 completed Prescrib ed Elsewher e: No Locat ion: [facility] odify By: isis coley DateTime : 02/19/20 12 09:57:10 AM Not Available Not Available Not Available Seasoniqu e 0.15 mg-30 mcg (84)/10 mcg(7) tablets,3 month dose pack take 1 tablet by oral route every day 07/04 completed Prescrib ed Elsewher e: No Locat ion: [facility] odify By: lorelei plasencia DateTime : 07/04/19 15 10:45:00 AM Not Available Not Available Not Available LoSeasoni que 0.1 mg-20 mcg (84)/10 mcg (7) tablets,3 month dose pack take 1 tablet by oral route every day 01/30 completed Prescrib ed Elsewher e: No Locat ion: [facility] odify By: dariuszcal Santyt er DateTime : 06/06/20 12 11:00:00 AM Not Available Not Available Not Available Estarylla 0.25 mg-0.035 mg tablet Take 1 tablet daily skipping placebo pills 2022 active Not Available Not Available Not Avai lable Vitals Date Recorded Body height Body mass index (BMI) Body weight Systolic blood pressure Diastolic blood pressure Provider Name and Address Organization Details Last Updated DateTime 08/27/2020 167.64 cm 24.5 kg/m2 61344.04 g 119 mm[Hg] 79 mm[Hg] Olga Lidia Sanchez [facility] 13:37:41 Date Recorded Body height Body mass index (BMI) Body weight Systolic blood pressure Diastolic blood pressure Provider Name and Address Organization Details Last Updated DateTime 12/24/2020 167.64 cm 25 kg/m2 37736.54 g 120 mm[Hg] 76 mm[Hg] Gissel Us [facility] 13:03:58 Date Recorded Body height Body mass index (BMI) Body weight Systolic blood pressure Diastolic blood pressure Provider Name and Address Organization Details Last Updated DateTime 10/02/2021 167.64 cm 25.5 kg/m2 09330.59 g 118 mm[Hg] 76 mm[Hg] Gissel Lovett [facility] 2 10:38:30 Date Recorded Body height Body mass index (BMI) Body weight Systolic blood pressure Diastolic blood pressure Provider Name and Address Organization Details Last Updated DateTime 02/20/2020 167.64 cm 22.8 kg/m2 40800.52 g 122 mm[Hg] 78 mm[Hg] Jyoti Dowd [facility] 0 11:58:37 Date Recorded Body height Body mass index (BMI) Body weight Systolic blood pressure Diastolic blood pressure Provider Name and Address Organization Details Last Updated DateTime 04/30/2023 167.64 cm 26 kg/m2 72283.37 g 121 mm[Hg] 79 mm[Hg] Ninfa Good [facility] 3 14:14:59 Social History Question Answer Notes LastModified by Organizat ion Details LastModified Time Tobacco Smoking Status Never Smoker Ninfa Good anshul [facility] 04/30/2023 14:10:07 What Is Your Level Of Alcohol Consumption? Occasional Information not available 12/16/2020 How Many Years Have You Consumed Alcohol? 10 Information not available 04/30/2023 Are You Blind Or Do You Have Difficulty Seeing? No Information n ot available 12/16/2020 What Is Your Level Of Caffeine Consumption? Moderate Information not available 04/30/2023 In The 14 Days Before Symptom Onset, Have You Had Close Contact With A Laboratory-confirm ed COVID-19 While That Case Was Ill? No Information n ot available 04/30/2023 In The 14 Days Before Symptom Onset, Have You Had Close Contact With A Person Who Is Under Investigation For COVID-19 While That Person Was Ill? No Information not available 04/30/2023 Have You Been To An Area Known To Be High Risk For COVID-19? No Information not available 04/30/2023 Are You Deaf Or Do You Have Serious Difficulty Hearing? No Information not available 12/16/2020 What Type Of Diet Are You Following? REGULAR Information n ot available 12/16/2020 What Is The Highest Grade Or Level Of School You Have Completed Or The Highest Degree You Have Received? 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 No Information not available 04/30/2023 Do You Use Your Seat Belt Or Car Seat Routinely? Yes Information not available 12/16/2020 Are You Sexually Active? Yes Information not available 04/30/2023 Do You Have Smoke And Carbon Monoxide Detectors In Your Home? Yes Information not available 12/16/2020 How Much Tobacco Do You Smoke? No Information not available 04/30/2023 Do You Feel Stressed (tense, Restless, Nervous, Or Anxious, Or Unable To Sleep At Night)? [id number] Information not available 12/16/2020 Do You Use Any Illicit Or Recreational Drugs? No Information not available 12/16/2020 Do You Use Sunscreen Routinely? Yes Information not available 12/16/2020 Have You Used IV Drugs? No Information not available 04/30/2023 Sex: Unknown Functional Status Question Answer Note LastModified by Organizat ion Details LastModified Time Do you have difficulty walking or climbing stairs? No Information not available 04/30/2023 Are you able to walk? YESWOREST Information not available 12/16/2020 Are you able to care for yourself? Yes Information not available 04/30/2023 Do you have difficulty dressing or bathing? No Information not available 04/30/2023 What is your exercise level? Moderate Information not available 04/30/2023 Mental Status None recorded. Family History Relationship Description Onset Age of this Age Resolved Age Notes LastModified by Organization Details LastModified Time Maternal Grandmother Diabetes mellitus [email or web address] Not available 2019 11:34:03 Maternal Grandfather Coronary arterioscler osis [email or web address] Not available 2022 14:08:12 Medical History Condition Response Allergies (Food, seasonal, environmental ) N Other N Breast Cancer N Drug/Latex Allergies/Reactions N Blood Transfusion N Dermatologic Disorders N Lung Disease N Defects or Inherited Disease N Breast Problem N Gestational Diabetes N Hematologic disorders N Anesthesia Complications N History of STI N Deep Vein Thrombosis N Polycystic ovary syndrome N Anxiety Disorder N Autoimmune disease N Arthritis N Infertility N Polyps N Acid Reflux (GERD) N History of abnormal pap N Cancer N Stroke N Varicosities N Neurologic/Epilepsy N Endometriosis N High Cholesterol N Headaches N Fibromyalgia N Kidney Disease N Heart Problems N Kidney or Bladder Problems N Thyroid Problems N GI Problems N Eating Disorder N Anemia N Art (IVF or FET) N Psychiatric Illness N Ovarian Cancer N Diabetes N Pulmonary (TB, Asthma) N Hepatitis/Liver Disease N No Past Medical History N Eczema N Urinary Tract Infection N Abuse/Domestic Violence N Asthma N Trauma/Violence N Depression/ depression N Heart Disease N Pre-Eclampsia N Hypertension N Osteoporosis N Thrombophilias N Gynecological History Statement/Question Response Flow Heavy Date of Last Mammogram Date of LMP 04/16/2023 STIs/STDs N HPV Vaccine N Duration of Flow (days) 5 13 Current Control Method BCPs Sexually Active? Y Menses Monthly N Date of DEXA bone scan Date of Last Pap Smear Sexual Problems? N Desired Control Method BCPs LMP Approximate Obstetrics History GPAL:G 0 P 0 0 0 0 Type Value Living 0 Total 0 Past Encounters Encounter ID Performer Location Encounter Start Date Encounter Closed Date Diagnosis/Indication Diagnosis SNOMED-CT Code Diagnosis ICD10 Code Diagnosis Note [id number] [facility] [address] [address] 02/20/2020 11:47:50 02/20/2020 12:28:47 Gynecologic examination 57001997 Z01.419 Take Calcium with Vitamin D 1200mg daily if not receiving in daily diet. It is strongly advised to have an annual flu shot and up can obtain at most pharmacies . If you have not had a TDap shot in the last 10 years you should obtain one as well. Discussed with patient & provided with informatio n regarding Gardisil vaccine to prevent the 4 strains for HPV that cause cervical cancer if under age 26. Encourage safe sexual practices, to use condoms and limit partners if not already in a monogamous relationsh ip. Do monthly self breast exams. Have mammogram yearly or every other year depending on family history. BRCA testing is now available for patients with strong genetic history of female cancer. If interested contact the office. Engage in daily exercise of low impact aerobic exercise 45-60 minutes 4-5 times weekly. Avoid tobacco and illicit drugs as well as using moderation with alcohol intake less than 1-2 8 oz beverages daily. This lifestyle behavior pattern will lead to less health conditions and longer life span. If BMI greater than 25 weight watchers or dietary consult advised. Patient received above instructio ns, and questions have been answered. If you have any questions please call or respond to this email. Patient was made aware of the patient portal and may obtain a paper copy of today's plan if desired. Contracept ion care management [id number] Z30.9 Continuous use control OCP. Happy on this method. RF s sent [id number] [address] [facility] [address] [address] 08/27/2020 13:23:39 08/28/2020 22:21:30 Contraception care management [id number] N94.5 Continuous use control OCP. Happy on continuous use therapy method. RF sent of 07/17 continuous use. Will continue. We did discuss POP SLYND/IUD as other alternativ e options moving forward. Discussed all control options and pt would like to consider a mirena IUD. I have discussed in detail all risks and benefits including risk of infection and perforatio n. She understand s she will need to contact office with next menses or may abstain, complete serum HCG day before placement, if neg can have IUD placed next day. Aware of need to verify with insurance device coverage. Literature given. All questions answered to patient satisfacti on. Time spent in visit is a total of 28 mins with at least 50% of visit consisting of counseling and review of plan of care. [id number] [facility] [address],[facility] [address] 12/24/2020 12:50:11 12/24/2020 13:44:12 Contraception care management [id number] N94.5 Switching back to Estarylla. Will contact if any issues or if vaginal dryness continues. VCG sheet given for home review & daily vaginal moisturize r also recommende d. Migraine without aura [id number] G43.009 Will have PCP manage moving forward. [id number] Maritza Pate [facility] [place] [address] [address] 10/02/2021 10:29:26 10/02/2021 11:20:15 Gynecologic examination [id number] Z01.419 Take Calcium with Vitamin D 1200mg daily if not receiving in daily diet. It is strongly advised to have an annual flu shot and up can obtain at most pharmacies . If you have not had a TDap shot in the last 10 years you should obtain one as well. Encourage safe sexual practices, to use condoms and limit partners if not already in a monogamous relationsh ip. Do monthly self breast exams. Engage in daily exercise of low impact aerobic exercise 45-60 minutes 4-5 times weekly. Avoid tobacco and illicit drugs as well as using moderation with alcohol intake less than 1-2 8 oz beverages daily. This lifestyle behavior pattern will lead to less health conditions and longer life span. If BMI greater than 25 weight watchers or dietary consult advised. Patient received above instructio ns, and questions have been answered. If you have any questions please call or respond to this email. Patient was made aware of the patient portal and may obtain a paper copy of today's plan if desired.Issa ayon has no issues todayDoing well on OCP's, desires to continue. Rx sent to the pharmacy for one year.Radha s hx of DVT, PE, HTN, Cancer, migraine with aura, or liver disease. She is a non-smoker .BP WNL, 118/76Risk and benfits discussed and accepted by patient.No hx of abnormal papsLast pap 01/2020, WNL.Pap done todaySTI testing declinedUT D on routine labs with PCP.Mammog yina will start at age 40 unless indicated soonerRTC in one year for WWE or sooner if needed [id number] [facility] [address] [address] 04/30/2023 14:07:30 04/30/2023 14:47:16 Gynecologic examination [id number] Z01.419 Take Calcium with Vitamin D 1200mg daily if not receiving in daily diet. It is strongly advised to have an annual flu shot and up can obtain at most pharmacies . If you have not had a TDap shot in the last 10 years you should obtain one as well. Discussed with patient & provided with informatio n regarding Gardisil vaccine to prevent the 4 strains for HPV that cause cervical cancer if under age 26. Encourage safe sexual practices, to use condoms and limit partners if not already in a monogamous relationsh ip. Do monthly self breast exams. Have mammogram yearly or every other year depending on family history. BRCA testing is now available for patients with strong genetic history of female cancer. If interested contact the office. Engage in daily exercise of low impact aerobic exercise 45-60 minutes 4-5 times weekly. Avoid tobacco and illicit drugs as well as using moderation with alcohol intake less than 1-2 8 oz beverages daily. This lifestyle behavior pattern will lead to less health conditions and longer life span. If BMI greater than 25 weight watchers or dietary consult advised. Patient received above instructio ns, and questions have been answered. If you have any questions please call or respond to this email. Patient was made aware of the patient portal and may obtain a paper copy of today's plan if desired. Pap sentSTD Screen declinedGe netic ScreenColo n ScreenDexa ScreenRout ine Labs Contracept ion care management [id number] N94.5 Happy on current OCPRF sent x 1yr Health Concerns Section Related Observation LastModified by Organization Detai ls LastModified Time None Recorded Concern Status LastModified by Organization Details LastModified Time None Recorded Advance Directives Directive None Recorded Payers Encounter Date Sequence Insurance Name Policy Number Policy Valdez Covered Member ID Valdez Member ID Guarantor Name 02/20/2020 1 [facility] [id number] Jose Love [id number] Jose Vega 08/27/2020 1 [facility] [id number] Jose Meyerln [id number] Jose Vega 12/24/2020 1 [facility] [id number] Jose Meyerln [id number] Jose Vega 10/02/2021 1 [facility] [id number] [facility] [id number] Jose Vega 04/30/2023 1 [facility] [id number] Jose Montenegro Orsgeronimoln [id number] Jose Vega Notes Date Note Type Note Provider Name and Address Organization Details Recorded Time 02/20/2020 text/html Annual GYNReport ed bypatient.History:no gynecologic complaints Menstrual cycle:Normal menses Urinary symptoms:No hematuria; No incontinence Vulva:No genital lesion Vagina:Normal vaginal discharge Breast:No breast pain; No breast lump; No nipple discharge Current Contraception:Satisf ied with current contraception; Monogamous relationship; Condoms; Oral contraceptives Sexual complaints:No sexual complaints; No pain during intercourse; Normal libido Menopausal Symptoms:No menopausal symptoms; Normal vaginal lubrication Psychological symptoms:No depression; No anxiety; No PMDD Preventive measures:Encourage self breast examination; Encourage regular exercise; Encourage no tobacco use; Encourage regular mammograms starting age 40; Followed with Q3 year pap smear and high risk HPV typing Mary Ann Roberson [facility] [address], [place], [address], [facility] 02/20/2020 12:26:26 08/27/2020 text/html Patient is here to discuss her current control. med check for continuing cycling. She has used it for a couple of years. Feels that every 1-2yrs it seems to stop working. Reports she will start to have random spotting in weeks 2-3. This is not every month but does become more frequent after awhile. Now it is reported to be at least every 1-2mos. despite being on continuous cycling. She loves the 07/17 continuous cycling but is interested in nowing all her BC options. She has no other complaints or issues. ROS is neg. Mary Ann Roberson [facility] [address], [place], [address], [facility] 09/15/2020 18:09:04 12/24/2020 text/html Patient is here today for a medicaton check of control of Junel continuous use. She feels like she does not like this method; noticed since starting she has more vaginal dryness on this method. Would like to switch back to previous OCP regular use; decided she was okay with monthly cycles. In addition, She requested refill of Elavil 25mg prn use for migraines which she gets about 5x per year. [facility] [address], [place], [address], [facility] 12/24/2020 13:34:15 10/02/2021 text/html Annual GYNReport ed bypatient.Menstrual cycle:Normal menses Urinary symptoms:No hematuria; No incontinence Vulva:No genital lesion Vagina:Normal vaginal discharge Breast:No breast pain; No breast lump; No nipple discharge Sexual complaints:No sexual complaints; No pain during intercourse; Normal libido Menopausal Symptoms:No menopausal symptoms; Normal vaginal lubrication Psychological symptoms:No depression; No anxiety; No PMDD Preventive measures:Encourage self breast examination; Encourage regular exercise; Encourage no tobacco use; Encourage regular mammograms starting age 40 ELIGIO Berman [address], [place], [address], [facility] 10/02/2021 17:20:08 04/30/2023 text/html Annual GYNReport ed bypatient.History:no gynecologic complaints Menstrual cycle:Normal menses Urinary symptoms:No hematuria; No incontinence Vulva:No genital lesion Vagina:Normal vaginal discharge Breast:No breast pain; No breast lump; No nipple discharge Current Contraception:Satisf ied with current contraception; Oral contraceptives Sexual complaints:No sexual complaints; No pain during intercourse; Normal libido Menopausal Symptoms:No menopausal symptoms; Normal vaginal lubrication Psychological symptoms:No depression; No anxiety; No PMDD Preventive measures:Encourage self breast examination; Encourage regular exercise; Encourage no tobacco use; Encourage regular mammograms starting age 40; Followed with yearly pap smears SONIA Olson [address], [place], [address], [facility] 04/30/2023 14:46:29 OBGyn Episode No OBEpisode recorded.
== END 2024-09-15 12:46 | disposition home or self-care (01) ==
PROVIDERS: Emergency Provider Nurse Practitioner Family; PCP Clinical Nurse Specialist
DX: J01.90 Acute sinusitis, unspecified (principal)
CPT/HCPCS: 87081; 87880; 99213; G0463

== ENCOUNTER 2024-12-04 08:09 | Outpatient (CLI) | payer OTHER, SELFPAY ==
--- OUTSIDE RECORDS SUMMARY | 2024-12-04 08:18 | XMS_ITS | Referral Summary ---
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 CHOICE PLUS Care Teams Epic Specialist Relationship Specialty Start Date End Date Linda Hung MD PCP - General Family Medicine 09/18/22
--- OUTSIDE RECORDS SUMMARY | 2024-12-04 08:18 | XMS_ITS | Clinical Summary ---
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 Gender Identity Not on file Sexual Orientation Not on file Plan of Treatment Health Maintenance Due Date Last Done Comments Cervical Cancer Screening 1993 Depression Screening 1993 Hepatitis C Screening 1993 Regular Well Visit/Exam 18-64 09/22/2011 HPV Vaccines (2 - 3-dose series) 04/14/2012 03/17/2012 Covid-19 Vaccine ( season) 2024 03/01/2021, 02/01/2021 Influenza Vaccine (Season Ended) 2025 04/09/2021, 02/29/2020, 07/04/2019, Additional history exists DTaP/Tdap/Td Vaccine (9 - Td or Tdap) 02/28/2030 02/29/2020, 06/28/2007, 01/27/2006, Additional history exists Hepatitis B Screening Completed 10/23/1994 , 1993, 1993 Varicella Vaccines Completed 01/24/2008, 05/17/1995 Pneumococcal vaccine <65 Aged Out No longer eligible based on patient's age to complete [place] [address] [facility] CHOICE PLUS [facility] H[facility]/PPO Address: [facility] [id number] [place] [address] Care Teams Provider Relations Rep Relationship Specialty Start Date End Date Linda Hung MD PCP - General Family Medicine 09/18/22
--- OUTSIDE RECORDS SUMMARY | 2024-12-04 08:18 | XMS_ITS | Data Portability ---
Author Organization [facility] [place] Address [address] [place] [address] Care Team Providers Care Singing Waiter Or Waitress Name Role Phone TALISHARXOY Primary Care Provider Assessment Encounter Date Assessment [...] Estarylla 0.25 mg-0.035 mg tablet 2022 023 [facility][id number], [address], [place], [id number], 14:20:09 Estarylla 0.25 mg-0.035 mg tablet 2021 022 [id number], [address], [place], [id number], 2 11:10:28 amitriptyl ine 25 mg tablet [address] [facility] #93099, [address], [place], [id number], 1 13:33:45 Estarylla 0.25 mg-0.035 mg tablet [address] [facility] #28022, [address], [place], [id number], 1 13:33:45 Junel 07/17 (21) 1 mg-20 mcg tablet [address] [facility] #65977, [address] [place] [address], [id number], 2 17:55:45 Sprintec (28) 0.25 mg-0.035 mg tablet 2019 [address] [facility] #32170, [address] [place] [address], [id number], 14:13:21 Patient TargetsNo targets recorded. Patient Instructions Encounter Date Encounter Id Patient Instructions Last Modified By Organization Details Last Modified Time 02/20/2020 [id number] [email or web address] Not available 12:23:15 Reason for Referral [...] Techn ical servi kari provi ded by [facility] [employer] Patho logis Scaled [facility]ference, d/b/a Path[facility] [place], [address] [place] [address] Ian Sanderson MD, Labor atory Dire tor. Case revie wed and diagn osis rende red at [facility] [employer] Patho logis [employer], [facility], d/b/a PathSamreen roujered, [address] [place] [address] Ian Sanderson MD, Labor atorTuxebo Dire tor. CONFI DENTI AL Not Available [facility] ([facility]) [address], [place], [address], 02/22/2020 13:18:23 10/03/19 22 10/02/2021 IMAGE GUIDE [...] deon (if appli cable ): Not Available [facility] (Lab) [address] [facility], [place], [address], 10/10/2021 16:57:48 04/30/20 23 04/30/2023 IMAGE GUIDE D PAP, REFLE X HPV IF ASCUS ONLY image guided Pap, reflex HPV ASCUS only SEE RESULT S BELOW CASE REPOR T: Cytol ogy Gynec ologi jorge Repor t Case: [id number] 20 Autho tremayne smith Provi cary: Arun Nguyen Colle cted: 04/30 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 Not Available [facility] (Lab) [address], [place], [address], 05/04/2023 14:02:26 Result Notes None recorded. Problems Name Problem SNOMED Code Status Onset Date Resolution Date Notes Provider Name and Address Organization Details Recorded Time Screenin g for malignan t neoplasm of cervix Completed 201003/30/2012 Screening for malignant neoplasms of the cervix;Re corded Elsewhere : No Locati on: [facility] So urce: EHR Chron ic: N Practic e ID: 0001 Bill able Time: 03:30:00 PM Gissel [facility] 17:39:[address] Concept Completed 201812/16/2020 Encntr for general adult medical exam w/o abnormal findings; Recorded Elsewhere : No Locati on: [facility] So urce: EHR Chron ic: N Practic e ID: 0001 Bill able Time: 08:45:00 AM Gissel [facility] 17:39:34 Menstrua tion finding Completed 201412/16/2020 Excessive or frequent menstruat ion;Recor ded Elsewhere : No Locati on: [facility] So urce: EHR Chron ic: N Practic e ID: 0001 Bill able Time: 09:30:00 AM Gissel [facility] 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 17:39:37 Irregula r intermen strual bleeding [id number] Completed 201412/16/2020 Break through bleeding; Recorded Elsewhere : No Locati on: [facility] So urce: EHR Chron ic: N Practic e ID: 0001 Bill able Time: 10:30:00 AM Gissel Us [facility] 1 17:39:28 Surveill ance of contrace ption Completed 201612/16/2020 Encounter for surveilla nce of contracep tives, unspecifi ed;Record ed Elsewhere : No Locati on: [facility] So urce: EHR Chron ic: N Practic e ID: 0001 Bill able Time: 02:00:00 PM Gissel Us [facility] 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 1 17:39:36 Family planning surveill ance Completed 201103/30/2012 Contracep tive surveilla nce, unspecifi ed;Record ed Elsewhere : No Locati on: [facility] So urce: EHR Chron ic: N Practic e ID: 0001 Bill able Time: 01:30:00 PM Not Available [facility] 0 14:28:03 Speciali zed medical examinat ion Completed 201003/30/2012 Gynecolog ical Examinati on;Record ed Elsewhere : No Locati on: [facility] So urce: EHR Chron ic: N Practic e ID: 0001 Bill able Time: 03:30:00 PM Gissel Us [facility] 1 17:39:37 Screenin g for malignan t neoplasm of cervix Completed 201112/16/2020 Pap Smear;Pra ctice ID: 0001 Gissel Us [facility] 17:39:33 Migraine [id number] Completed 201612/16/2020 Migraine, unsp, not intractab le, without status migrainos us;Practi ce ID: 0001 Gissel Us [facility] 17:39:31 Headache [id number] Completed 201112/16/2020 Headache; Recorded Elsewhere : No Locati on: [facility] So urce: EHR Chron ic: N Practic e ID: 0001 Bill able Time: 01:30:00 PM Gissel Us [facility] 17:39:26 Problem Notes None recorded. Procedures Surgical History Date Name Laterality Status Provider Name and Address Organization Details Recorded Time Tonsillectomy completed Ninfa Good Ariel [facility] 04/30/2023 14:15:34 Imaging Results None recorded. [...] Prescrib ed Elsewher e: No Locat ion: [facility] odify By: isis coley DateTime : 02/19/20 12 09:57:10 AM Not Available Not Available Not Available Seasoniqu e 0.15 mg-30 mcg (84)/10 mcg(7) tablets,3 month dose pack take 1 tablet by oral route every day 07/04 completed Prescrib ed Elsewher e: No Locat ion: [facility] By: lorelei plasencia DateTime : 07/04/19 15 10:45:00 AM Not Available Not Available Not Available LoSeasoni que 0.1 mg-20 mcg (84)/10 mcg (7) tablets,3 month dose pack take 1 tablet by oral route every day 01/30 completed Prescrib ed Elsewher e: No Locat ion: [facility] By: dariuszcal Encount er DateTime : 06/06/20 12 11:00:00 AM [...] Updated DateTime 08/27/2020 167.64 cm 24.5 kg/m2 16910.04 g 119 mm[Hg] 79 mm[Hg] L Daniel [facility] 1 13:37:41 Date Recorded Body height Body mass index (BMI) Body weight Systolic blood pressure Diastolic blood pressure Provider Name and Address Organization Details Last Updated DateTime 10/02/2021 167.64 cm 25.5 kg/m2 10456.59 g 118 mm[Hg] 76 mm[Hg] Gissel Lovett [facility] 2 10:38:30 Date Recorded Body height Body mass index (BMI) Body weight Systolic blood pressure Diastolic blood pressure Provider Name and Address Organization Details Last Updated DateTime 12/24/2020 167.64 cm 25 kg/m2 25632.54 g 120 mm[Hg] 76 mm[Hg] Gissel Us [facility] 1 13:03:58 Date Recorded Body height Body mass index (BMI) Body weight Systolic blood pressure Diastolic blood pressure Provider Name and Address Organization Details Last Updated DateTime 02/20/2020 167.64 cm 22.8 kg/m2 29121.52 g 122 mm[Hg] 78 mm[Hg] Jyoti Dowd [facility] 0 11:58:37 Date Recorded Body height Body mass index (BMI) Body weight Systolic blood pressure Diastolic blood pressure Provider Name and Address Organization Details Last Updated DateTime 04/30/2023 167.64 cm 26 kg/m2 16904.37 g 121 mm[Hg] 79 mm[Hg] Ninfa Good [facility] 3 14:14:59 Social History Question Answer Notes LastModified by Organizat ion Details LastModified Time Tobacco Smoking Status Never Smoker Ninfa Good anshul [facility] 04/30/2023 14:10:07 How Many Years Have You Consumed Alcohol? [...] Or The Highest Degree You Have Received? [id number] Information not available 04/30/2023 Do You Use [...] Information not available 04/30/2023 Do You Use Sunscreen Routinely? Yes Information not available 12/16/2020 Have You Used IV Drugs? No Information not available 04/30/2023 Do You Have Difficulty Walking Or Climbing Stairs? No Information not available 04/30/2023 Sex: Unknown Functional Status Question Answer Note LastModified by Organizat ion Details LastModified Time Do you use any illicit or recreational drugs? No Information not available 12/16/2020 What is your level of alcohol consumption? Occasional Information not available 12/16/2020 Are you able to walk? YESWOREST Information not available 12/16/2020 Are you able to care for yourself? 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 No Information not available 04/30/2023 What is your exercise level? Moderate Information not available 04/30/2023 Mental Status Question Answer Note LastModified by Organization D etails LastModified Time Do you feel stressed (tense, restless, nervous, or anxious, or unable to sleep at night)? [id number] Information not available 12/16/2020 Family History Relationship Description Onset Age of this Age Resolved Age Notes LastModified by Organization Details LastModified Time Maternal Grandmother Diabetes mellitus [email or web address] Not available 2019 11:34:03 Maternal Grandfather Coronary arterioscler osis [email or web address] Not available 2022 14:08:12 Medical History Condition Response Allergies (Food, seasonal, environmental ) N Other N Breast Cancer N Drug/Latex Allergies/Reactions N Blood Transfusion N Lung Disease N Dermatologic Disorders N Defects or Inherited Disease N Breast [...] SNOMED-CT Code Diagnosis ICD10 Code Diagnosis Note [id number] [facility] [address] [address] 02/20/2020 11:47:50 02/20/2020 12:28:47 Gynecologic examination [id number] Z01.419 Take Calcium with Vitamin D 1200mg [...] plan if desired. Contracept ion care management [id number] Z30.9 Continuous use control OCP. Happy on this method. RFs sent [id number] Mary Ann Roberson [facility] [address] [address] 08/27/2020 13:23:39 08/28/2020 22:21:30 Contraception care management [id number] N94.5 Continuous use control OCP. Happy on [...] counseling and review of plan of care. [id number] Mary Ann [facility] [address],[facility] [place] [address] 12/24/2020 12:50:11 12/24/2020 13:44:12 Contraception care management [id number] N94.5 Switching back to Estarylla. Will contact if any issues or if vaginal dryness continues. VCG sheet given for home review & daily vaginal moisturize r also recommende d. Migraine without aura [id number] G43.009 Will have PCP manage moving forward. [id number] ELIGIO Berman [place] [address] [address] 10/02/2021 10:29:26 10/02/2021 11:20:15 Gynecologic examination [id number] Z01.419 Take Calcium with Vitamin D 1200mg [...] year for WWE or sooner if needed [id number] Mary Ann [facility]erson [facility] [address] [address] 04/30/2023 14:07:30 04/30/2023 14:47:16 Gynecologic examination [id number] Z01.419 Take Calcium with Vitamin D 1200mg [...] ScreenRout ine Labs Contracept ion care management [id number] N94.5 Happy on current OCPRF sent x 1yr Health Concerns Section Related Observation LastModified by Organization Detai ls LastModified Time None Recorded Concern Status LastModified by Organization Details LastModified Time None Recorded Advance Directives Directive None Recorded Payers Encounter Date Sequence Insurance Name Policy Number Policy Valdez Covered Member ID Valdez Member ID Guarantor Name 02/20/2020 1 [facility] [id number] Jose Love [id number] Jose Vega 08/27/2020 1 [facility] [id number] Jose Meyerln [id number] Jose Vega 12/24/2020 1 [facility] [id number] Jose Meyerln [id number] Jose Vega 10/02/2021 1 [facility] [id number] Jose Meyer [id number] Jose Ortiz Francemary 04/30/2023 1 [facility] [id number] Jose Montenegro Orsgeronimoln [id number] Jose eVga Notes Date Note Type Note Provider Name [...] high risk HPV typing [facility] [address], [place], [address], [facility] 02/20/2020 12:26:26 08/27/2020 text/html Patient is [...] issues. ROS is neg. Mary Ann Roberson [facility] [address], [place], [address], [facility] 09/15/2020 18:09:04 12/24/2020 text/html Patient is [...] which she gets about 5x per year. [facility] [address], [place], [address], [facility] 12/24/2020 13:34:15 10/02/2021 text/html Annual GYNReport [...] age 38 ELIGIO Berman [address], [place], [address], [facility] 10/02/2021 17:20:08 04/30/2023 text/html Annual GYNReport [...] age 38; Followed with yearly pap smears [facility] [address], [place], [address], [facility] 04/30/2023 14:46:29 OBGyn Episode No OBEpisode recorded.
--- OUTSIDE RECORDS SUMMARY | 2024-12-04 08:18 | XMS_ITS | Clinical Summary ---
Author Organization [facility] [employer] Address [address] [place] [address] Care Team Providers Care Armor Reconnaissance Vehicle Driver Name Role Phone Andrade De Oliveira MD Primary Care Provider [phone] Source Comments [facility] [employer],non-owned Affiliates and Associated Physician Practices is amultiple site organization consisting of ambulatory clinics and hospital sitesin [place], [place], [place] and [place]. This disclosure is being madepursuant to the Care Everywhere program and may not contain all information available regarding this patient. Last updated 18.[facility] [employer] Allergies No known active allergies Medications * Be aware that medications may not be up to date on this document. Alwaysverify current medications with the patient. No known medications Active Problems No known active problems Immunizations Immunization Administration Dates Next Due INFLUENZA VACCINE, QUADR. 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 Gender Identity Not on file Sexual Orientation [...] 3:31 PM CDT Height 168 cm (5' 6.14) 12/15/2019 3:31 PM CDT Body Mass Index 22.34 12/15/2019 3:31 PM CDT Plan of Treatment Health Maintenance Due Date Last Done Comments HIV SCREENING 2008 HEPATITIS C SCREENING 09/17/2011 HEPATITIS B VACCINE (1 of 3 - 19+ 3-dose series) 2012 COVID-19 VACCINE (1 - 2023-2 5 season) 2024 DEPRESSION SCREENING 06/28/2024 INFLUENZA VACCINE (Season Ended) 2025 02/29/2020, 07/04/2019, 04/19/2014 DTAP/TDAP/TD VACCINES (2 - T d or [...] patient's age to complete this topic Insurance [facility] [place] [id number] Care Teams Armor Reconnaissance Vehicle Driver Relationship Specialty Start Date End Date Andrade De Oliveira MD [address] [place] [address] PCP - General Family Medicine 05/06/16
== END 2024-12-04 08:10 | disposition home or self-care (01) ==
LOC: ANHAUDIO 08:10
PROVIDERS: PCP Internal Medicine; Visit Provider Otolaryngology
DX: H93.A2 Pulsatile tinnitus, left ear (principal)
CPT/HCPCS: 92557; 92567

== ENCOUNTER 2024-12-11 14:52 | Outpatient (CLI) | payer OTHER, SELFPAY ==
--- NOTE | ~2024-12-11 | CT_ITS ---
CTA brain Ordering provider: Daryl Stewart MD History: . pulsatile tinnitus, left ear x months . Comparison: None. Technique: CT angiogram head was performed following timed intravenous injection of contrast. Thin sl ice axial images and reformatted coronal images were obtained. Three dimensional reformatted images o f the brain were also obtained using a [employer] workstation. Radiation reduction technique utilized.Th e dose-length product was 917.32 mGy-cm. 100 mL Omnipaque 350 was given IV. FINDINGS: --ANTERIOR AND MIDDLE CEREBRAL ARTERIES AND BRANCHES: Normal caliber and contour. --INTERNAL CAROTID ARTERIES: Normal caliber and contour. --BASILAR ARTERY AND BRANCHES: Normal caliber and contour. No atheromatous disease. --POSTERIOR CEREBRAL ARTERIES: Normal caliber and contour --POSTERIOR COMMUNICATING ARTERIES: Not visualized which is probably related to congenital absence or small size. --ANEURYSM: None visualized. --BRAIN: Normal.--BONES AND SUPERFICIAL SOFT TISSUES: Normal. --PARANASAL SINUSES AND MASTOIDS: Normal. IMPRESSION: Normal CTA head. Reviewed, dictated and finalized at location A. IMPRESSION: Normal CTA head.
== END 2024-12-11 14:53 | disposition home or self-care (01) ==
LOC: MICIMG 14:53
PROVIDERS: PCP Internal Medicine; Visit Provider Otolaryngology
DX: H93.A2 Pulsatile tinnitus, left ear (principal)
CPT/HCPCS: 70496; Q9967

== ENCOUNTER 2025-04-11 14:23 | Emergency (ER) | payer OTHER, SELFPAY ==
[2025-04-11] VITALS (11 sets, daily range): BP systolic 104–121; BP diastolic 68–84; PULSE 86; RESP 14; O2SAT 83–100
--- NOTE | ~2025-04-11 | CT_ITS ---
REFERENCE: [None available.] TECHNIQUE: Axial 2.5 and 5 mm images of the head and neck were obtained without and with infusion of contrast dose cc of intravenous contrast. Postcontrast 1.25 mm axial images were then obtained. On an independent workstation, 0.625 mm axial images were utilized to render MIP and MPR images of the intracranial circulation. CTA NECK: The aortic arch demonstrates normal caliber and patency. Normal branching pattern is noted of the supraaortic vessels. The origins of the supraaortic vessels are widely patent. The common carotid and cervical segments of the ICA and ECA demonstrate normal caliber and patency. The vertebral arteries are symmetric in size, demonstrating normal patency. CTA HEAD: The intracranial ICA, CM, and MCA demonstrate normal caliber and patency. No hemodynamically significant stenosis or aneurysm is identified. The distal vertebral, basilar, and bilateral posterior cerebral arteries demonstrate normal caliber and patency. The superior cerebellar arteries are also widely patent. NONVASCULAR FINDINGS: The soft tissue of the neck is unremarkable. No mass or pathologic enhancement is noted. There is no pathologically enlarged lymphadenopathy. The airway is patent. No acute intracranial hemorrhage, mass, or extraaxial fluid collections are noted. Ventricular size is normal. The skull is intact. The visualized mastoid air cells and sinuses are clear. There is no pathologic enhancement. IMPRESSION: No hemodynamically significant stenosis is noted of the cervical and intracranial arterial vasculature. Reviewed, dictated and finalized at location S. IMPRESSION: No hemodynamically significant stenosis is noted of the cervical and intracrani al arterial vasculature.
--- OUTSIDE RECORDS SUMMARY | 2025-04-11 16:40 | XMS_ITS | Clinical Summary ---
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 Gender Identity Not on file Sexual Orientation Not on file Plan of Treatment Health Maintenance Due Date Last Done Comments Cervical Cancer Screening 1993 Depression Screening 1993 Hepatitis C Screening 1993 Regular Well Visit/Exam 18-64 09/22/2011 HPV Vaccines (2 - 3-dose series) 04/14/2012 03/17/2012 Covid-19 Vaccine ( season) 2025 03/01/2021, 02/01/2021 Influenza Vaccine (#1) 2025 , 02/29/2020, 07/04/2019, Additional history exists DTaP/Tdap/Td Vaccine (9 - Td or Tdap) 02/28/2030 02/29/2020, 06/28/2007, 01/27/2006, Additional history exists Hepatitis B Screening Completed 10/23/1994 , 1993, 1993 Varicella Vaccines Completed 01/24/2008, 05/17/1995 Pneumococcal vaccine <65 Aged Out No longer eligible based on patient's age to complete this topic Insurance [facility] [employer] Care Teams Corn Husker Machine Operator Relationship Specialty Start Date End Date Linda Hung MD PCP - General Family Medicine 09/18/22
--- OUTSIDE RECORDS SUMMARY | 2025-04-11 16:40 | XMS_ITS | Clinical Summary ---
Author Organization [facility] [employer] Address [address] [place] [address] Care Team Providers Care Heavy Mobile Equipment Operator Name Role Phone Andrade De Oliveira MD Primary Care Provider [phone] Source Comments [facility] [employer],non-owned Affiliates and Associated Physician Practices is amultiple site organization consisting of ambulatory clinics and hospital sitesin [place], [place] and [place]. This disclosure is being madepursuant to the Care Everywhere program and may not contain all information available regarding this patient. 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
--- NOTE | 2025-04-11 16:41 | PC.NURSE ---
Dr. Burgos at bedside assessing pt.
[2025-04-11 16:43] LABS: BEDSIDEPREGUCG Negative (Negative)
--- NOTE | 2025-04-11 16:44 | ECG_ITS ---
Test Date: 2025-04-11 17:38:03 Measurements Intervals [place] Rate: 83 P: 28 CT: 136 QRS: 58 QRSD: 89 T: 0 QT: 347 QTc: 408 Interpretive Statements SINUS RHYTHM NONSPECIFIC T-WAVE ABNORMALITY- ANT/INF LEADS BASELINE ARTIFACT- I, III, AVL, AVF BORDERLINE ECG No previous ECG available for comparison Electronically Signed On 04-11-2025 18:03:43 CDT by Nick Le D.O.
--- NOTE | 2025-04-11 16:46 | ED.DIZZY ---
HPI - Dizziness General Chief Complaint: Dizziness Stated Complaint: VERTIGO Time Seen by Provider: 04/11/25 15:33 History of Present Illness HPI Narrative: 29-year-old female with a past medical history including vertigo and pulsatile tinnitus presenting to the emergency department today with worsening vertigo, nausea, vomiting. Patient states that symptoms started over last week. She went to primary care provider's office after an episode and was prescribed meclizine which did not seem to help her at all. She endorsed a week ago prior to her symptom onset she did have some chiropractic manipulation of her neck that was more intense than usual. Symptoms started several days after. Denies any headache or vision changes. States that the symptoms are very positional and she favors laying on her right side as she does not feel vertiginous or dizzy but when she gets up or moves the left side she feels uncoordinated and dizzy. No chest pain shortness a breath. No back pain, fever, chills. Denies chance of . Has only tried meclizine at home for symptom control. Related Data Allergies Allergy/AdvReac Type Severity Reaction Status Date / Time No Known Allergies Allergy Verified 04/11/25 14:26 Review of Systems Review of Systems: As reviewed above in HPI [facility] Past Medical History Medical History Loss of hair Fatigue Surgical History Surgical History History of removal of cyst [place]ow teeth removed History of tonsillectomy Family History Family History Grandparent Diabetes mellitus Cerebrovascular accident Family history of pancreatic cancer Grandparent Thyroid cancer Other H/O parathyroidectomy Social History Social History Social History: caffeine-daily Smoking status: Never smoker Second hand tobacco smoke exposure: No Alcohol intake: current Drinks per week: 3 Substance use: never Substance use type: does not use Do You Feel Safe in your Home?: Yes Lack of Transportation: No Lack of Food: Never True Current Housing: I Have Housing Concerned About Future Housing: No Difficulty Paying Gas/Electric Bills: No Difficulty Paying for Meds: No Currently Unemployed: No Education: Bachelor's Degree Difficulty w/ Childcare or Family Care: No Living arrangements: with family Occupation/Education: student Gender identity (if verbalized by the patient): Female Sexual Orientation (if Verbalized by the Patient): Straight or Heterosexual Exam Narrative: GENERAL: [Well-appearing, well-nourished, and in no acute distress.] HEAD: [Normocephalic, atraumatic.] EYES: [PERRLA and EOMI.] ENT: Nares clear, no rhinorrhea or epistaxis. Mucous membranes moist. NECK: Supple. CHEST: [Clear to auscultation. No respiratory distress.] HEART: [Regular rate and rhythm]. No murmur heard. [Normal peripheral pulses.] ABDOMEN: [Soft, nondistended], [nontender], [No rigidity or guarding] EXTREMITIES: Normal range of motion. [No edema.] SKIN: Warm, dry, no rash. NEURO: No focal neurological deficits. Awake alert oriented x3. No dysmetria or ataxia in the arms or legs. No truncal ataxia. No nystagmus elicited with extraocular movement. No facial droop or asymmetry. No dysarthria. Full strength and sensation throughout both arms and legs. No paresthesias or sensory deficits noted. PSYCH: [Normal mood and affect.] Course Vital Signs Vital signs: Vital Signs Pulse Oximetry 100 04/11/25 15:02 Pulse Rate 86 04/11/25 17:44 Respiratory Rate 14 04/11/25 17:44 Blood Pressure 106/68 04/11/25 17:44 Pulse Oximetry 100 04/11/25 17:44 MDM - Dizziness MDM Narrative Medical decision making narrative: 29-year-old female with a past medical history including vertigo and pulsatile tinnitus presenting to the emergency department today with worsening vertigo, nausea, vomiting. Patient states that symptoms started over last week. She went to primary care provider's office after an episode and was prescribed meclizine which did not seem to help her at all. She endorsed a week ago prior to her symptom onset she did have some chiropractic manipulation of her neck that was more intense than usual. Symptoms started several days after. Denies any headache or vision changes. States that the symptoms are very positional and she favors laying on her right side as she does not feel vertiginous or dizzy but when she gets up or moves the left side she feels uncoordinated and dizzy. No chest pain shortness a breath. No back pain, fever, chills. Denies chance of . Has only tried meclizine at home for symptom control. Examination is reassuring. Neuro status shows no focal neurological deficits. Awake alert oriented x3. No dysmetria or ataxia in the arms or legs. No truncal ataxia. No nystagmus elicited with extraocular movement. No facial droop or asymmetry. No dysarthria. Full strength and sensation throughout both arms and legs. No paresthesias or sensory deficits noted. She has reassuring vital signs here with a normal blood pressure 120/84, heart rate 85, 99% on room air. No tachypnea noted. Given her recent chiropractic manipulation will have to rule out central etiology such as dissection or aneurysm formation. She had a recent CT angiography 4 months ago after being evaluated for pulsatile tinnitus which was negative which is reassuring. Did not have any response to meclizine so we will trial second-line agent such as benzodiazepines. She was given Valium IV as well as fluids and scopolamine patch applied. Will re-evaluate her in placed on death clearance coordinator. Patient re-evaluated after the Valium and had improvement and able to ambulate but still feeling slightly dizzy. At this time will trial Reglan diphenhydramine which completely resolved her symptoms and she is ambulatory without difficulty. CT angiography shows no acute abnormalities of findings. Laboratory studies are normal. Patient felt much better and safe for discharge home at this time. She has PCP follow-up instructions and is already gotten referral previously for his tibia therapy which she will pursue. He has any anti that she can follow-up with. Given Reglan diphenhydramine as well as scopolamine for symptom control and safe for discharge home at this time. Patient had marked improvement after the 2nd rounds of antiemetics. Ambulatory with steady gait and vertigo resolved. CT scans were unremarkable and given her reassuring workup and improvement clinically she can be discharged home with outpatient follow-up by heard regular doctors for vestibular therapy referral which she has been referred to previously. She has an ENT doctor that she can follow-up with his well. Give prescriptions for Reglan diphenhydramine and scopolamine. Given return precautions and safely discharged home at this time. Medical Records Attestation: I reviewed the patient's medical records. Lab Data Attestation: I reviewed the patient's lab results. 04/11/25 16:55 04/11/25 16:55 Labs: Lab Results 04/11/25 04/11/25 04/11/25 Range/Units 16:41 16:43 16:55 WBC 7.9 (4.5-10.0) K/mm3 RBC 4.76 (4.2-5.4) M/mm3 Hgb 14.1 (12.0-15.0) g/dL Hct 41.1 (37.0-47.0) % MCV 86.3 (80-100) fl MCH 29.6 (26-34) pg MCHC 34.3 (32-36) g/dl RDW 12.1 (11.5-14.5) % Plt Count 329 (150-375) k/mm3 MPV 9.8 (7.4-10.4) fl Immature Gran % (Auto) 0.4 (0-0.5) % Neut % (Auto) 75.9 H (45.5-73.1) % Lymph % (Auto) 14.6 L (18.3-44.2) % [place] % (Auto) 8.7 H (2.6-8.5) % Eos % (Auto) 0.1 (0-4.4) % Baso % (Auto) 0.3 (0.2-1.2) % Lymph # (Auto) 1.15 (0.9-3.2) K/mm3 [place] # (Auto) 0.7 H (0.1-0.6) K/mm3 Eos # (Auto) 0.0 (0-0.3) K/mm3 Baso # (Auto) 0.0 (0.0-0.1) K/mm3 Abs Immat Gran (auto) 0.03 (0.00-0.031) K/mm3 Absolute Neuts (auto) 6.0 (1.3-6.7) K/mm3 Absolute Nucleated RBC 0.000 (0.0-0.012) K/mm3 Nucleated RBC % 0.0 (0.0-0.2) % PT 13.6 (11.1-14.7) Seconds INR 1.0 APTT 35.8 (22.3-36.8) Seconds Sodium 138 (137-145) mmol/L Potassium 3.9 (3.4-5.0) mmol/L Chloride 102 (98-107) mmol/L Carbon Dioxide 24 (22-30) mmol/L Anion Gap 12 (4-12) mmol/L BUN 9 (7-17) mg/dL Creatinine 0.67 L (0.7-1.0) mg/dL Estim Creat Clear Calc 98 ml/min Estimated GFR > 60 (59 - ) Glucose 99 (65-110) mg/dL Calcium 9.5 (8.4-10.2) mg/dL Total Bilirubin 1.0 (0.2-1.3) mg/dL AST 26 (14-36) U/L ALT 31 (6-35) U/L Alkaline Phosphatase 80 (38-126) U/L Total Protein 8.7 H (6.3-8.2) g/dL Albumin 4.9 (3.5-5.1) g/dL Urine Color Yellow (Yellow) Urine Appearance Clear (Clear) Urine pH 6.5 (5.0-9.0) Ur Specific [place] 1.007 (1.001-1.035) Urine Protein Negative (Negative) mg/dL Urine Glucose (UA) Negative (Negative) mg/dL Urine Ketones 1+ H (Negative) mg/dL Ur Blood (Man) Negative (Negative) Urine Nitrate Negative (Negative) Urine Bilirubin Negative (Negative) Urine Urobilinogen 0.2 (<2.0) mg/dL Add Ur Microanalysis Reviewed Leukocyte Esterase Rfl 1+ H (Negative) TAJ/UL Urine RBC 0-2 (0-2) /hpf Urine WBC 0-5 (0-3) /hpf Ur Squamous Epith Cells Occasional (Few) /hpf Urine Bacteria None seen /hpf Urine Casts 0-2 POC Urine HCG, Qual Negative (Negative) Imaging Data Attestation: I personally reviewed and interpreted this imaging study as follows: My impression: Impressions Head/Neck CTA 04/11/25 18:40 IMPRESSION: No hemodynamically significant stenosis is noted of the cervical and intracranial arterial vasculature. Discharge Plan Discharge Clinical Impression: Vertigo Patient Disposition: Home Condition: Stable Instructions: Antibiotic Form Additional Instructions: Symptoms consistent with positional vertigo which is a vestibular dysfunction. Follow-up with your vestibular therapy referral, follow-up with your primary doctor and ENT as needed. Will prescribe some medications that seem to work for your symptoms here. Take the Reglan and diphenhydramine together for symptom control. Return with any persistent new or worsening symptoms. Patient Language: Namibian Prescriptions: New metoclopramide HCl [Reglan] 5 mg tablet 5 mg PO Q8H PRN (Reason: nausea and vomiting) Qty: 20 0RF diphenhydramine HCl 25 mg capsule 25 mg PO TID PRN (Reason: dizziness or vertigo) Qty: 30 0RF scopolamine base 1 mg over 3 days patch 3 day 1 patch transdermal Q3D PRN (Reason: dizziness or vertigo) Qty: 10 0RF No Action meclizine 25 mg tablet 25 mg PO BID PRN (Reason: dizziness) Qty: 30 0RF Follow-up/Referrals: Jamie Christensen DO [Primary Care Provider, Internal Medicine] Time of Disposition: 21:27
--- NOTE | 2025-04-11 16:59 | PC.NURSE ---
This RN and sherice sullivan attempted peripheral IV access with no success. Pt. states I'm usually a hard stick. and I'm dehydrated. LYNDA Gibson to bedside to attempt.
[2025-04-11 17:10] LABS: Add Urine Microscopic? YES; Appearance Urine Clear (Clear); Glucose Urine UA Negative (Negative); Leukocyte Esterase Ur 1+ LEU/UL (Negative); Need Manual Microscopic Reviewed; Nitrate Urine Negative (Negative); Non Pathogenic Casts 0-2; Specific Grav Ur 1.007 (1.001-1.035)
[2025-04-11 17:13] LABS: Hematocrit 41.1 % (37.0-47.0); Hemoglobin 14.1 g/dL (12.0-15.0); Immature Granulocyte Percent A 0.4 % (0-0.5); Lymphocytes Absolute Auto 1.15 K/mm3 (0.9-3.2); Mean Corpuscular HGB Conc 34.3 g/dl (32-36); Mean Corpuscular Hemoglobin 29.6 pg (26-34); Mean Corpuscular Volume 86.3 fl (80-100); Nucleated Red Blood Cells Absolute Auto 0.000 K/mm3 (0.0-0.012); Nucleated Red Blood Cells Perc 0.0 % (0.0-0.2); Platelet Count Result 329 k/mm3 (150-375); Red Blood Count 4.76 M/mm3 (4.2-5.4); White Blood Count 7.9 K/mm3 (4.5-10.0)
[2025-04-11] MEDS: LACTATED RINGERS 1,000 ML 999 ML IV CONT (17:22)
[2025-04-11 17:23] LABS: INR 1.0; Prothrombin Time 13.6 Seconds (11.1-14.7)
[2025-04-11 17:24] LABS: Partial Thromboplastin Time 35.8 Seconds (22.3-36.8)
[2025-04-11 17:26] LABS: Alanine Aminotransferase 31 U/L (6-35); Albumin Level 4.9 g/dL (3.5-5.1); Alkaline Phosphatase 80 U/L (38-126); Anion Gap 12 mmol/L (4-12); Aspartate Amino Transferase 26 U/L (14-36); Bilirubin,Total 1.0 mg/dL (0.2-1.3); Blood Urea Nitrogen 9 mg/dL (7-17); Calcium 9.5 mg/dL (8.4-10.2); Carbon Dioxide 24 mmol/L (22-30); Chloride 102 mmol/L (98-107); Estimated CRCL calculation 98 ml/min; Estimated Glomerular Filt Rate > 60; Glucose 99 mg/dL (65-110); Potassium 3.9 mmol/L (3.4-5.0); Sodium 138 mmol/L (137-145); Total Protein 8.7 g/dL (6.3-8.2)
[2025-04-11] MEDS: SCOPOLAMINE 1 MG PATCH 1 PATCH TRANSDERM (17:27)
[2025-04-11] MEDS: diazePAM INJ (*CRX) 10 MG/2 ML SYRINGE 5 MG IV PUSH (17:28)
--- OUTSIDE RECORDS SUMMARY | 2025-04-11 17:33 | XMS_ITS | Clinical Summary ---
Author Organization 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
--- OUTSIDE RECORDS SUMMARY | 2025-04-11 17:33 | XMS_ITS | Clinical Summary ---
Author Organization [facility] [employer] Address [address] [place] [address] Care Team Providers Care Director Report Name Role Phone Andrade De Oliveira MD Primary Care Provider [phone] Source Comments [facility] [employer],non-owned Affiliates and Associated Physician Practices is amultiple site organization consisting of ambulatory clinics and hospital sitesin [place], [place], [place] and [place]. This disclosure is being madepursuant to the Care Everywhere program and may not contain all information available regarding this patient. 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
--- NOTE | 2025-04-11 17:45 | PC.NURSE ---
Pt. reports improvement in dizziness after valium.
[2025-04-11] MEDS: METOCLOPRAMIDE HCL INJ 10 MG/2 ML VIAL 5 MG IV PUSH (19:53)
== END 2025-04-11 21:40 | disposition home or self-care (01) ==
PROVIDERS: Emergency Provider Student in an Organized Health Care Education/Training Program; PCP Internal Medicine
DX: R42 Dizziness and giddiness (principal); R94.31 Abnormal electrocardiogram [ECG] [EKG]
CPT/HCPCS: 36415; 70496; 70498; 80053; 81001; 81025; 85025; 85610; 85730; 87086; 93005; 96361; 96374; 96375; 99284; A9270; J1200; J2765; J3360; J7120; Q9967

== ENCOUNTER 2025-06-04 09:45 | Outpatient (CLI) | payer OTHER, SELFPAY ==
--- NOTE | ~2025-06-04 | MR_ITS ---
EXAMINATION: MR brain/brain stem wo/w con DATE: 06/04/2025 10:45 INDICATION: Tinnitus, left ear. TECHNIQUE: Magnetic resonance imaging (MRI) of the brain and brainstem was performed without and with 15 mL MultiHance intravenous contrast. COMPARISON: Head CT 04/11/2025 FINDINGS: There is no intracranial hemorrhage, acute infarction, or abnormal intracranial mass lesion. The ventricles are normal in size. There is mild mucosal thickening in the paranasal sinuses. The orbits are normal. The mastoid air cells are normal. The internal auditory canals, inner ears, and tympanic cavities are normal. IMPRESSION: 1. Normal brain. Reviewed, dictated and finalized at location E. TOR SERVICES SPECIALIST IMPRESSION: 1. Normal brain.
== END 2025-06-04 09:46 | disposition home or self-care (01) ==
PROVIDERS: PCP Internal Medicine; Visit Provider Nurse Practitioner
DX: H93.12 Tinnitus, left ear (principal)
CPT/HCPCS: 70553; A9577